=== PATIENT | male | born 1960 | race African-American/Black ===

== ENCOUNTER 2021-03-29 03:41 | Emergency (ER) | payer SELFPAY ==
[~2021-03-29] VITALS: Ht 177.8 cm; Wt 82.0 kg
[2021-03-29] MEDS ORDERED: EPINEPHRINE 0.1MG/ML (1:10,000) 10ML SYR ONE (10:41)
[2021-03-29] MEDS ORDERED: SODIUM BICARBONATE 8.4% 1 MEQ/ML 50ML SYR IV ONE (10:41)
== END 2021-03-29 06:04 ==
LOC: ER 03:41
DX: I46.9 Cardiac arrest, cause unspecified (principal); Z20.822 Contact with and (suspected) exposure to COVID-19
CPT/HCPCS: 87426; 92950; 99285; J3490